=== PATIENT | female | born 1990 | race Caucasian/White ===

== ENCOUNTER 2016-11-27 15:24 | Emergency (ER) | payer OTHER ==
[~2016-11-27] VITALS: Ht 165.1 cm; Wt 58.9 kg
[~2016-11-27 15:24] MED LIST: FERROUS SULFAT324 M1 PO; NAPROSYN500 MG PO; PROVERA,CYCRIN10 MG PO
[2016-11-27] MEDS ORDERED: PREDNISONE50 MG PO (18:18)
[2016-11-27] MEDS ORDERED: VENTOLIN HFA18 GM IH (18:18)
[2016-11-27 18:31] VITALS: BP 119/77
== END 2016-11-27 18:33 | disposition home or self-care (01) ==
LOC: EME 15:24
DX: J40 Bronchitis, not specified as acute or chronic (principal); J98.01 Acute bronchospasm; Z87.891 Personal history of nicotine dependence
CPT/HCPCS: 71020; 94640; 99281; 99283

== ENCOUNTER 2017-05-25 18:10 | Emergency (ER) | payer OTHER ==
[~2017-05-25] VITALS: Ht 167.6 cm; Wt 61.1 kg
[~2017-05-25 18:10] MED LIST changes: +PREDNISONE50 MG PO; +VENTOLIN HFA18 GM IH
[2017-05-25] MEDS ORDERED: ZITHROMAX250 MG PO (18:34)
[2017-05-25] MEDS ORDERED: PREDNISONE20 MG PO (18:34)
[2017-05-25 19:33] VITALS: BP 110/66
== END 2017-05-25 19:38 | disposition home or self-care (01) ==
LOC: RME 18:10 → EME 18:10 → RME 19:38
DX: J18.0 Bronchopneumonia, unspecified organism (principal); J45.909 Unspecified asthma, uncomplicated; F17.200 Nicotine dependence, unspecified, uncomplicated; Z71.6 Tobacco abuse counseling; Z88.0 Allergy status to penicillin
CPT/HCPCS: 99281; 99284; J7512

== ENCOUNTER 2017-07-27 09:30 | Emergency (ER) | payer OTHER ==
[~2017-07-27] VITALS: Ht 165.1 cm; Wt 61.7 kg
[~2017-07-27 09:30] MED LIST changes: +PREDNISONE20 MG PO; +ZITHROMAX250 MG PO
[2017-07-27 10:08] LABS: HEMATOCRIT 39.5 % (36.0-46.0); MCH 29.3 PG (29.0-34.0); MCHC 32.9 G/DL (30.0-36.0); MEAN PLAT.VOLUME 8.4 uM^3 (9.5-12.4); PLATELET COUNT 290 K/uL (156-360); RBC DIS.WIDTH-CV 12.2 % (11.8-14.6); RED BLOOD COUNT 4.44 M/uL (3.80-5.20); WHITE BLOOD COUNT 10.1 K/uL (4.1-10.2)
[2017-07-27 10:18] LABS: CHLORIDE 108 mEq/L (99-109); SODIUM 139 mEq/L (136-147)
[2017-07-27 10:19] LABS: GLUCOSE 106 mg/dL (70-99)
[2017-07-27 10:21] LABS: ANION GAP 7 MEQ/L (2-14)
[2017-07-27 10:23] LABS: GFR ESTIMATE (CALCULATED) > 59 mL/min/
[2017-07-27 10:24] LABS: UREA NITROGEN (BUN) 8 mg/dL (9-23)
[2017-07-27] MEDS ORDERED: ZITHROMAX250 MG PO (12:28)
[2017-07-27] MEDS ORDERED: PREDNISONE20 MG PO (12:28)
[2017-07-27] MEDS ORDERED: VENTOLIN HFA18 GM IH (12:28)
[2017-07-27 13:26] VITALS: BP 122/78
== END 2017-07-27 13:30 | disposition home or self-care (01) ==
LOC: EME 09:30
DX: J06.9 Acute upper respiratory infection, unspecified (principal); J32.9 Chronic sinusitis, unspecified; J45.909 Unspecified asthma, uncomplicated; F17.200 Nicotine dependence, unspecified, uncomplicated; Z88.0 Allergy status to penicillin
CPT/HCPCS: 71020; 80048; 85027; 94644; 99281; 99284; J7512

== ENCOUNTER 2017-10-21 11:51 | Emergency (ER) | payer OTHER ==
[~2017-10-21] VITALS: Ht 167.6 cm; Wt 68.8 kg
[2017-10-21] MEDS ORDERED: TESSALON PERLE100 MG PO (14:02)
[2017-10-21 14:13] VITALS: BP 120/76
== END 2017-10-21 14:14 | disposition home or self-care (01) ==
LOC: EME 11:51
DX: J45.909 Unspecified asthma, uncomplicated (principal); Z87.891 Personal history of nicotine dependence; Z88.0 Allergy status to penicillin
CPT/HCPCS: 94640; 99281; 99284

== ENCOUNTER 2017-10-28 15:27 | Emergency (ER) | payer OTHER ==
[~2017-10-28] VITALS: Ht 167.6 cm; Wt 69.9 kg
[~2017-10-28 15:27] MED LIST changes: +TESSALON PERLE100 MG PO
[2017-10-28] MEDS ORDERED: TRI-SPRINTEC1 EACH PO (16:20)
[2017-10-28] MEDS ORDERED: VITAMIN B12-FO1 EACH PO (16:20)
[2017-10-28] MEDS ORDERED: VIBRAMYCIN100 MG PO (17:14)
[2017-10-28 17:28] VITALS: BP 115/67
== END 2017-10-28 17:29 | disposition home or self-care (01) ==
LOC: EME 15:27
DX: L03.317 Cellulitis of buttock (principal); Z88.0 Allergy status to penicillin
CPT/HCPCS: 99281; 99283

== ENCOUNTER 2017-10-30 09:32 | Emergency (ER) | payer OTHER ==
[~2017-10-30] VITALS: Ht 167.6 cm; Wt 70.0 kg
[~2017-10-30 09:32] MED LIST changes: +TRI-SPRINTEC1 EACH PO; +VIBRAMYCIN100 MG PO; +VITAMIN B12-FO1 EACH PO
[2017-10-30 09:45] VITALS: BP 139/90
== END 2017-10-30 11:56 | disposition home or self-care (01) ==
LOC: EME 09:32
PROC: 0H98XZZ Drainage of Buttock Skin, External Approach (ICD-10-PCS; principal; 2017-10-30)
DX: L02.31 Cutaneous abscess of buttock (principal); Z88.0 Allergy status to penicillin; F17.200 Nicotine dependence, unspecified, uncomplicated
CPT/HCPCS: 99281; 99283